=== PATIENT | male | born 1935 | race African-American/Black ===

== ENCOUNTER 2019-02-11 17:30 | Inpatient (IN) ==
[2019-02-11] MEDS ORDERED: ASPIRIN PO ONE (17:49)
--- NOTE | 2019-02-11 17:53 | PROVIDER DOCUMENTATION ---
HPI-Chest Pain - General Stated Complaint: CHEST PAIN Time Seen by Provider: 02/11/19 17:44 Source: patient Allergies/Adverse Reactions: Patient Allergies Allergy/AdvReac Type Severity Reaction Status Date / Time No Known Allergies Allergy Verified 10/01/17 11:31 Home Medications: Home Medication List Medication Instructions Recorded Confirmed Last Taken Type Warfarin Sodium [Coumadin] 5 mg PO QHS 10/22/13 02/11/19 09/30/17 History Metoprolol Tartrate 25 mg PO BID 12/30/16 02/11/19 09/30/17 History Furosemide [Lasix] 20 mg PO DAILY 10/01/17 02/11/19 09/30/17 History Isosorbide Mononitrate [Isosorbide 30 mg PO DAILY 10/01/17 02/11/19 09/30/17 History Mononitrate ER] Enoxaparin [Lovenox] 60 mg SUBQ Q12H #14 syringe 02/13/19 Unknown Rx - History of Present Illness-CP Nature of Presenting Problem: 83 YO M pmh for HTN and artificial heart valve on coumadin presents with episode of chest pain, substernal, non radiating that is pressure like and causing him to be short of breath. He denies n/v/diaphoresis or prior CO. Location: reports: substernal Quality of Pain: reports: pressure Onset/Duration: 1-3 hours ago Timing: still present, improving Nitro Today/Relief: no nitro taken today Aspirin Treatment Today: no aspirin today Similar Symptoms Previously?: No Recently Seen Here or By Another Healthcare Provider: No Review of Systems - Adult - REVIEW OF SYSTEMS - ADULT Constitutional: denies: chills, fever Eyes: reports: no symptoms reported. denies: blurred vision, double vision Ears, Nose, Mouth & Throat: reports: no symptoms reported Cardiovascular: reports: see HPI, chest pain. denies: palpitations, syncope Respiratory: reports: see HPI, shortness of breath Gastrointestinal: reports: no symptoms reported. denies: nausea, vomiting Genitourinary: reports: no symptoms reported Musculoskeletal: reports: no symptoms reported Integumentary: reports: no symptoms reported Neurological: reports: no symptoms reported Psychiatric: reports: no symptoms reported Endocrine: reports: no symptoms reported Hematologic/Lymphatic: reports: no symptoms reported Past History - Adult - PAST MEDICAL HISTORY-ADULT Review of Records: reports: Social history reviewed & non-contributory. 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 ) Other Conditions: reports: denies history - PRIOR SURGERIES/PROCEDURES Surgical/Procedure History: reports: reviewed, not pertinent, other (MVR) - PRIOR HOSPITALIZATIONS Prior Hospitalizations: reports: none - IMMUNIZATION STATUS Childhood Immunizations: See Nurse Assessment Flu Vaccine: See Nurse Assessment - FAMILY HISTORY Family History: diabetes, reviewed, not pertinent - SOCIAL HISTORY Smoking: denies Substance Use: denies Living Situation: family Physical Exam-General - PHYSICAL EXAM-ADULT Initial Vital Signs Reviewed: Yes - CONSTITUTIONAL General Appearance: appears well, alert, no apparent distress, thin - EYES Eyes: PERRL/EOMI, pink conjunctivae - HEAD, EARS, NOSE, MOUTH & THROAT HENMT: normocephalic/atraumatic, moist mucous membranes - NECK Neck: full range of motion, supple - RESPIRATORY Respiratory: lungs clear, normal breath sounds, no pleuratic chest pain, no respiratory distress, no accessory muscle use - CARDIOVASCULAR Cardiovascular: normal peripheral pulses, regular rate, rhythm - GASTROINTESTINAL (ABDOMEN) Abdominal Exam: non tender, soft - MUSCULOSKELETAL Back Exam: no CVA tenderness Extremity: non-tender, normal gait, normal inspection, no pedal edema - SKIN Integumentary: normal color, normal turgor, warm/dry - NEUROLOGIC Neurologic: grossly normal, no motor/sensory deficits - PSYCHIATRIC Psych/Mental Status: normal mood/affect, oriented x 3 - HEART Score HEART Score: History: Slightly Suspicious HEART Score: ECG: Non-Specific Repolarization Disturbance/LBBB/PM HEART Score: Age: > or = 65 Years HEART Score: Risk Factors for Atherosclerotic Disease: No Risk Factors Known HEART Score: Troponin: < or = Normal Limit Total HEART Score:: 3 Progress - PLAN OF CARE/RESULTS Progress/Plan/Lab Results: Orders Category Date Time Status Admit - [facility] Routine AdmDCTranf 02/11/19 21:39 Active Activity - Bed Rest with BRP ORDERED Care 02/11/19 21:41 Active Cardiac Monitoring DIRECTED Care 02/11/19 17:49 Completed Daily Weights 0500 Care 02/11/19 22:40 Active I&O [Intake and Output-Strict] ORDERED Care 02/11/19 22:40 Active Nursing- MD Consult Request ROUTINE Care 02/11/19 22:45 Active Vital Signs Order Q 4-HR ASSESS Care 02/11/19 21:41 Active Physician/Provider Consults Routine Cons 02/11/19 22:44 Ordered Heart Healthy Diet Diet 02/11/19 19:40 Completed CHEST-2 VIEWS [RAD] Stat Exams 02/11/19 17:49 Completed CBC WITH DIFF [HEME] Routine Lab 02/12/19 07:00 Completed CBC WITH ELECTRONIC DIFF [HEME] Stat Lab 02/11/19 18:08 Completed CK PROFILE [SP CHEM] Q8H Lab 02/12/19 00:48 Completed CK PROFILE [SP CHEM] Q8H Lab 02/12/19 08:46 Completed CK PROFILE [SP CHEM] Q8H Lab 02/12/19 16:30 Completed CK PROFILE [SP CHEM] Stat Lab 02/11/19 18:08 Completed COMPREHENSIVE METABOLIC PANEL [CHEM] Stat Lab 02/11/19 18:08 Completed DIGOXIN [TDM] Routine Lab 02/12/19 07:00 Completed LIPID PROFILE W/CALC LDL [LIPIDS] Routine Lab 02/12/19 07:00 Completed PRO B-NATRIURETIC PEPTIDE Stat Lab 02/11/19 18:08 Completed TROPONIN T Q8H Lab 02/12/19 00:48 Completed TROPONIN T Q8H Lab 02/12/19 08:46 Completed TROPONIN T Q8H Lab 02/12/19 16:30 Completed TROPONIN T Stat Lab 02/11/19 18:08 Completed TROPONIN T Stat Lab 02/11/19 20:24 Completed TSH Stat Lab 02/11/19 18:08 Completed URINALYSIS W/POSS RFLX CULT [URINALYSIS] Stat Lab 02/11/19 18:35 Completed URINE MANUAL MICROSCOPIC [URINALYSIS] Stat Lab 02/11/19 18:35 Completed 0.9% Sodium Chloride Inj [Ns] 1,000 ml Med 02/12/19 00:28 Discontinued IV 75 mls/hr Aspirin Med 02/11/19 17:49 Discontinued 324 mg PO NOW ONE Enoxaparin [Lovenox] Med 02/12/19 09:00 Discontinued 40 mg SUBQ Q24H Furosemide [Lasix] Med 02/12/19 09:00 Discontinued 20 mg PO DAILY Isosorbide Mononitrate E.r. [Imdur] Med 02/12/19 09:00 Discontinued 30 mg PO DAILY Metoprolol [Lopressor] Med 02/12/19 09:00 Discontinued 25 mg PO BID Metoprolol [Lopressor] Med 02/12/19 09:00 Discontinued 25 mg PO BID Morphine Med 02/11/19 20:06 Discontinued 4 mg IV NOW ONE Nitroglycerin Med 02/12/19 00:28 Discontinued 1 inch TOP Q6H Warfarin [Coumadin] Med 02/12/19 21:00 Discontinued 5 mg PO QHS EKG [EKG] Stat Ther 02/11/19 17:48 Completed EKG [EKG] Stat Ther 02/11/19 17:48 Draft Transfer/Admit Order [TRANSFER] Routine Transfer 02/11/19 21:40 Completed Result Diagrams: 02/12/19 07:00 02/11/19 18:08 - REASSESSMENT Reassessment #1 Time Reassessed: 19:21 Status: other (pain currently controlled. pt states it was more like a pressure .) - EKG 1 Time of EKG reading by physician:: 18:30 EKG Read and Signed by:: Antonieta Grace EKG Interpretation (*Must complete 3 of following elements*): Abnormal Rate: 75 Rhythm: NSR QRS: poor R wave progression, LVH DC Interval: normal ST Wave: depressed (v4,v5,v6) Prior EKG Comparison: changes noted (from 10/01/17) 2 Time of EKG reading by physician:: 20:06 EKG Read and Signed by:: Antonieta Grace EKG Interpretation (*Must complete 3 of following elements*): Abnormal Rate: 70 Rhythm: NSR QRS: normal DC Interval: normal ST Wave: depressed Prior EKG Comparison: changes noted (improving depressions in lateral leads than before) - CONSULTS/PCP/HOSPITALIST Notification #1 *Consult/PCP/Hospitalist*: Dr. Escamilla Time Discussed: 19:20 Consult Disposition: Will see in ED, Admit Departure - Departure Date of Disposition Decision: 02/11/19 Time of Disposition Decision: 19:21 DIAGNOSIS: Chest pain Disposition: ADMITTED INPATIENT 09 Certified Medical Emergency: Emergent Condition: Stable - Critical Care Note This patient required my direct & personal management of CC.: No Attestation - Physician/ TRES Attestation The physician spent face to face time with patient:: Yes Advanced Practice Provider documentation review:: Supervising physician onsite and consulted in the evaluation and care of this patient. The physician did have a face to face encounter with the patient.
[2019-02-11 18:25] LABS: BASO# 0.02 X1000 (0.0-0.2); BASO% 0.2 % (0.0-0.8); EOS# 0.02 X1000 (0.0-0.7); EOS% 0.2 % (0.0-10.0); HEMATOCRIT 35.6 % (42.0-52.0); HEMOGLOBIN 11.6 g/dL (14.0-18.0); IMM GRAN# 0.02 X1000 (0.0-0.04); IMM GRAN% 0.2 % (0.0-0.5); LYMPH# 0.52 X1000 (1.2-3.4); LYMPH% 5.1 % (20.5-51.1); MCH 28.4 PG (27-31); MCHC 32.6 g/dL (33-37); MONO# 0.73 X1000 (0.11-0.59); MONO% 7.1 % (1.7-9.3); MPV 10.8 FL (7.4-10.4); NEUT# 8.98 X1000 (1.4-6.5); NEUT% 87.2 % (42.2-75.2); PLT 136 X1000 (130-400); RBC 4.09 XMIL (4.7-6.1); RDW 15.4 % (11.5-14.5); WBC 10.29 X1000 (4.8-10.8)
--- NOTE | 2019-02-11 18:27 | Diag Imaging Result Doc PS360 ---
EXAM: CHEST-2 VIEWS - 02/11/2019 HISTORY: CP TECHNIQUE: Chest two views COMPARISON: 10/01/2017 FINDINGS: There is cardiomegaly similar to prior. There is prosthetic mitral valve again seen. There are apparent COPD changes similar to prior. There is prominence of central markings similar to prior. There is no acute consolidation, pleural effusion, or pneumothorax identified. IMPRESSION: Cardiomegaly, COPD changes, and prominence of central markings similar to prior. Compared to prior, no acute changes. Electronically signed by Pablo Cunningham 02/11/2019 6:25 PM
[2019-02-11 18:45] LABS: URINE SOURCE CLEAN CATCH
[2019-02-11 18:48] LABS: BILIRUBIN URINE NEGATIVE (NEGATIVE); BLOOD URINE SMALL (NEGATIVE); COLOR YELLOW; GLUCOSE URINE NEGATIVE (NEGATIVE); KETONE URINE NEGATIVE (NEGATIVE); LEUKOCYTES URINE NEGATIVE (NEGATIVE); NITRITE URINE NEGATIVE (NEGATIVE); PH URINE 6.5; PROTEIN URINE 30 mg/dL (NEGATIVE); TURBIDITY URINE CLEAR (CLEAR); UROBILINOGEN URINE 6 mg/dL (NORMAL)
[2019-02-11 18:58] LABS: UR EPITHELIAL CELLS <10 /HPF (<10); URINE BACTERIA NEGATIVE /HPF; URINE RBC <10 /HPF (<10); URINE WBC <10 /HPF (<10)
[2019-02-11 19:00] LABS: AGAP 17; ALBUMIN 4.1 g/dL (3.5-5.0); ALKALINE PHOSPHATASE 82 U/L (32-122); BUN 13 mg/dL (8-22); CALCIUM 9.2 mg/dL (8.8-10.2); CHLORIDE 95 mmol/L (98-107); CK PROFILE 92 U/L (24-204); COSMO 272; ESTIMATED GFR > 60; GLUCOSE 98 mg/dL (70-104); GOT 31 U/L (10-34); GPT 9 U/L (10-44); POTASSIUM 4.9 mmol/L (3.5-5.1); SODIUM 136 mmol/L (136-145); TCO2 24 mmol/L (25-35); TOTAL BILIRUBIN 0.55 mg/dL (0.20-1.00); TOTAL PROTEIN 8.4 g/dL (6.3-8.3)
[2019-02-11 19:04] LABS: URINE CRYSTALS NONE SEEN
[2019-02-11] MEDS ORDERED: MORPHINE IV ONE (20:06)
--- NOTE | 2019-02-11 21:48 | EKG Report ---
Test Performed on : 02/11/2019 6:27:48 PM Test Reason : CP Blood Pressure : / mmHG Vent. Rate : 075 BPM Atrial Rate : 075 BPM P-R Int : 142 ms QRS Dur : 090 ms QT Int : 442 ms P-R-T Axes : 076 -56 104 degrees QTc Int : 493 ms Normal sinus rhythm. Left anterior fascicular block Left ventricular hypertrophy with repolarization abnormality Cannot rule out Septal infarct , age undetermined Abnormal ECG When compared with ECG of 01-OCT-2017 14:25, Minimal criteria for Septal infarct are now present ST no longer elevated in Lateral leads T wave inversion now evident in Anterolateral leads Unconfirmed Result
--- NOTE | 2019-02-11 21:48 | EKG Report ---
Test Performed on : 02/11/2019 8:04:34 PM Test Reason : CP Blood Pressure : / mmHG Vent. Rate : 070 BPM Atrial Rate : 070 BPM P-R Int : 150 ms QRS Dur : 088 ms QT Int : 440 ms P-R-T Axes : 071 -41 082 degrees QTc Int : 475 ms Sinus rhythm. with premature supraventricular complexes. Left axis deviation Left ventricular hypertrophy with repolarization abnormality Cannot rule out Septal infarct (cited on or before 11-FEB-2019) Abnormal ECG When compared with ECG of 11-FEB-2019 18:27, (Unconfirmed) premature supraventricular complexes. are now present Confirmed by Angus LUZ, Ghulam ([id number]) on 02/12/2019 8:37:50 AM
[2019-02-12] MEDS: NITROGLYCERIN TOP SCH ×4 (02:32→21:53)
[2019-02-12] MEDS: NS 1,000 ML IV SCH ×2 (02:33→12:51)
--- NOTE | 2019-02-12 06:47 | HISTORY AND PHYSICAL ---
CHIEF COMPLAINT: Chest tightness for less than 1 day. HISTORY OF PRESENT ILLNESS: Mr. Jeovany Veliz is an 83-year-old male who has history of coronary artery disease, history of mitral valve replacement, previous cerebrovascular accident, and hypertension. The patient stated that he developed chest tightness at about 2:30 pm today. Apparently, he was attending a when the chest tightness started . On a scale of 0 to 10, he describes it as 9 to 10 over 10. It is alleviated with analgesic, with no known aggravating factor. He has associated palpitations. No diaphoresis. The patient was seen, and evaluated in the ER. His initial cardiac enzymes have been negative. EKG does not show any evidence of acute coronary syndrome. The patient will now be admitted to the floor for further management. PAST MEDICAL HISTORY: 1. History of mitral valve disease. 2. History of previous cerebrovascular accident. 3. History of hypertension. PAST SURGICAL HISTORY: He has had mechanical valve replacement as well as brain aneurysm clipping. ALLERGIES: No known drug allergies. SOCIAL HISTORY: No history of cigarette smoking. No alcohol or drug use. FAMILY HISTORY: Positive for coronary artery disease. DISCHARGE MEDICATIONS: 1. Warfarin 5 mg p.o. at bedtime. 2. Metoprolol 25 mg p.o. twice a day. 3. Lasix 20 mg p.o. daily. 4. Isosorbide dinitrate 30 mg p.o. daily. REVIEW OF SYSTEMS: Constitutional: No fever. LEPIDOPTERIST: No headaches. Eyes: No blurred vision. ENT: No sinus problems. No hearing loss. Cardiovascular: See history of present illness. Respiratory: No cough. GI: No nausea, vomiting, or diarrhea. : No dysuria. Hematology: No skin lesions. Hematology: Patient is on chronic anticoagulation. Musculoskeletal: No joint pains. Endocrine: No thyroid disease or diabetes. Psychiatric: No anxiety or depression. PHYSICAL EXAMINATION: VITAL SIGNS: Temperature 99 degrees, pulse 75, respiratory rate is 18, blood pressure 137/70, and oxygen saturation 100%. HEENT: Atraumatic and normocephalic. CARDIOVASCULAR: S1, S2. RESPIRATORY: There is evidence of good air entry bilaterally. ABDOMEN: Soft, nontender. No masses felt. EXTREMITIES: No evidence of edema. CENTRAL NERVOUS SYSTEM: No obvious focal deficit noted. LABORATORY DATA: WBC 10.29, hematocrit 35.6 with a platelet count of 136,000. Sodium 136, potassium 4.9, chloride 5, bicarb 24, BUN 13, and creatinine is 1.0. ProBNP is 21. Chest x-ray shows evidence of cardiomegaly with COPD changes and prominence of central markings. EKG no acute changes to suggest acute coronary syndrome. ASSESSMENT AND PLAN: 1. Atypical chest pain. Place patient on telemetry. Follow up on serial cardiac enzymes. Maintain patient on aspirin , beta mee and nitroglycerin. Check lipid panel. Consult with Cardiology. 2. Mechanical heart valve. Continue warfarin. Monitor PT/INR. 3. Congestive heart failure. Monitor intakes and outputs as well as daily weights. Diuretics as needed. 4. Hypertension. Optimize blood pressure control. 5. Deep vein thrombosis prophylaxis. The patient is on warfarin. 6. Gastrointestinal prophylaxis. PPI. cc: John Escamilla MD MTDD
[2019-02-12 07:28] LABS: BASO# 0.02 X1000 (0.0-0.2); BASO% 0.3 % (0.0-0.8); EOS# 0.09 X1000 (0.0-0.7); EOS% 1.5 % (0.0-10.0); HEMATOCRIT 31.6 % (42.0-52.0); HEMOGLOBIN 10.3 g/dL (14.0-18.0); IMM GRAN# 0.02 X1000 (0.0-0.04); IMM GRAN% 0.3 % (0.0-0.5); LYMPH# 1.01 X1000 (1.2-3.4); MCH 28.5 PG (27-31); MCHC 32.6 g/dL (33-37); MCV 87.3 FL (81-99); MONO# 0.57 X1000 (0.11-0.59); MONO% 9.6 % (1.7-9.3); MPV 10.6 FL (7.4-10.4); NEUT# 4.22 X1000 (1.4-6.5); NEUT% 71.3 % (42.2-75.2); PLT 132 X1000 (130-400); RBC 3.62 XMIL (4.7-6.1); RDW 15.4 % (11.5-14.5); WBC 5.93 X1000 (4.8-10.8)
[2019-02-12 07:33] LABS: INR 1.77
[2019-02-12 07:58] LABS: CHOLESTEROL 154 mg/dL (0-200); HDL 76 mg/dL (35-55); LDL 69 mg/dL; TRIGLYCERIDES 46 mg/dL (39-160); VLDL 9 mg/dL
[2019-02-12] MEDS ORDERED: LOPRESSOR PO SCH (09:00)
[2019-02-12] MEDS ORDERED: LOVENOX SUBQ SCH (09:00)
[2019-02-12] MEDS: LOPRESSOR PO SCH (09:29)
[2019-02-12] MEDS: IMDUR PO SCH (09:29)
[2019-02-12] MEDS: LASIX PO SCH (09:29)
[2019-02-12] MEDS ORDERED: LOVENOX 1 MG/KG SUBQ ONE (11:21)
[2019-02-12] MEDS ORDERED: LOVENOX SUBQ ONE (11:30)
--- NOTE | 2019-02-12 11:38 | EKG Report ---
Test Performed on : 02/12/2019 11:26:53 AM Test Reason : chest pain Blood Pressure : / mmHG Vent. Rate : 058 BPM Atrial Rate : 058 BPM P-R Int : 174 ms QRS Dur : 096 ms QT Int : 492 ms P-R-T Axes : 080 -38 099 degrees QTc Int : 482 ms Sinus bradycardia. with marked sinus arrhythmia. Left axis deviation Voltage criteria for left ventricular hypertrophy Anteroseptal infarct (cited on or before 11-FEB-2019) Abnormal ECG When compared with ECG of 11-FEB-2019 20:04, premature supraventricular complexes. are no longer present T wave amplitude has decreased in Anterior leads Confirmed by Angus LUZ, Ghulam ([id number]) on 02/12/2019 5:39:34 PM
--- NOTE | 2019-02-12 16:48 | PROGRESS NOTE ---
DATE: 02/12/2019 SUBJECTIVE: The patient came in with shortness of breath and chest pain. He has a mechanical heart valve. He is on Coumadin, but he is somewhat therapeutic. No clear evidence the type of valve he has, buy in any case, he came in for chest pain. He has ruled out. He is currently getting cardiac workup per Cardiology Service, echocardiogram and a stress test tomorrow. He is on anticoagulation. We are going to keep him on anticoagulation. He is on Lasix, Imdur, Lopressor. OBJECTIVE: Vital Signs: On exam, his blood pressure is 122/81, heart rate 85, respiratory 16, temperature 97.9 degrees. Cardiovascular: Regular rate and rhythm. Pulmonary: Bilateral breath sounds. Clear to auscultation. Gastrointestinal: Abdomen was soft, nontender, nondistended. Bowel sounds are positive. LABORATORY DATA: Hemoglobin and hematocrit of 10 and 31. INR is 1.7. PROBLEM LIST: 1. Chest pain. Again, he is getting a full cardiac workup, Lexiscan and stress. Cardiology is following. 2. Mechanical heart valve. We will continue to keep his Coumadin levels between 2.5 and 3.5. 3. Congestive heart failure. He appears to be compensated. DISPOSITION: Pending his clinical status. cc: Sandor Salvador MD
--- NOTE | 2019-02-12 20:43 | CARDIOLOGY CONSULTATION ---
DATE: 02/12/2019 CHIEF COMPLAINT ON PRESENTATION: Chest pain. HISTORY OF PRESENT ILLNESS: Mr. Veliz is an 83-year-old black male with a history of mechanical mitral valve. Yesterday he was at a when he had some nonexertional chest pain that lasted for around 15 minutes. It was described as tightness. He had no other associated symptoms. No exertional component to it. He reports compliance with his medications. PAST MEDICAL HISTORY: Significant for: 1. Mitral valve disease with mitral valve replacement. 2. Previous CVA. 3. History of nonobstructive coronary disease. 4. Hypertension. SOCIAL HISTORY: No tobacco use. He is . FAMILY HISTORY: Significant for coronary disease. REVIEW OF SYSTEMS: A 10 system review of systems is negative except for those things mentioned in HPI. PHYSICAL EXAMINATION: Vital Signs: He is afebrile. His heart rate is 66. Blood pressure 132/72. General: He is in no acute distress. Cardiovascular: He sounds to be in a regular rate and rhythm. He has no obvious murmurs. He has a crisp mechanical S1 heard. He has no S3. He has no lower extremity edema. Chest: Exam sounds relatively clear. He has no increased work of breathing. Abdomen: Soft, nontender, nondistended. He has no obvious organomegaly. Skin: Warm and dry throughout without any rashes. Neurological: He is moving all extremities well. He has no lateralizing deficits. PERTINENT DATA: His EKG on 02/11/2019 at 20:04 shows sinus rhythm. Evidence for LVH is identified. His subsequent EKG on 02/12/2019 at 11:26 demonstrates sinus rhythm. Again, evidence for LVH is identified. His EKG on 02/11/2019 at 20:04 shows sinus rhythm, evidence for LVH. Pac was identified. He had a chest x-ray performed that demonstrated cardiomegaly with changes consistent with COPD, some mild prominence of interstitial markings. White count 5.9, hematocrit 31, and his platelet count is 132,000. His INR is 1.7. His troponin was normal. His albumin is 4. His HDL is 76, LDL 69. ASSESSMENT: Mr. Veliz is an 83-year-old gentleman who presented with chest pain. PLAN: We will proceed with rest perfusion imaging today and stress in the morning. His echocardiogram is currently pending. If this is unremarkable, then he can likely be discharged home. We gave him one dose of Lovenox. At this point, management of his INR will be deferred to the primary team. cc: Wade Sosa MD
[2019-02-12] MEDS ORDERED: COUMADIN PO SCH ×2 (21:00)
[2019-02-13] MEDS: LOPRESSOR PO SCH ×2 (01:12→11:30)
[2019-02-13] MEDS: NITROGLYCERIN TOP SCH ×3 (03:48→15:35)
--- NOTE | 2019-02-13 07:15 | EKG Report ---
Test Performed on : 02/13/2019 06:57:00 AM Test Reason : chest pain Blood Pressure : / mmHG Vent. Rate : 067 BPM Atrial Rate : 067 BPM P-R Int : 168 ms QRS Dur : 096 ms QT Int : 482 ms P-R-T Axes : 073 -54 088 degrees QTc Int : 509 ms Normal sinus rhythm. Left anterior fascicular block Minimal voltage criteria for LVH, may be normal variant Nonspecific T wave abnormality Prolonged QT Abnormal ECG When compared with ECG of 12-FEB-2019 11:26, Criteria for Anteroseptal infarct are no longer present Confirmed by Angus LUZ, Ghulam ([id number]) on 02/13/2019 8:21:02 AM
[2019-02-13 07:55] LABS: INR 1.55; PROTIME 18.9 Seconds (11.0-16.0)
[2019-02-13] MEDS ORDERED: LEXISCAN ONE (08:31)
[2019-02-13] MEDS ORDERED: LOVENOX SUBQ SCH (09:15)
--- NOTE | 2019-02-13 09:47 | ECHO REPORT ---
ORDER DATE: 02/12/2019 MEASUREMENTS: Aortic root 3.2, left atrium 3.6, right atrium 6.1. SUMMARY: 1. Technically difficult study due to limited acoustic window quality. Intravenous echo contrast agent Optison was utilized to enhance endocardial definition. 2. Aortic valve is trileaflet and demonstrates mild sclerotic change, but adequate opening on 2- dimensional images. The peak gradient across the aortic valve is approximately 10 mmHg. There is [id number] aortic regurgitation. Mitral valve has been replaced with mechanical prosthesis, which appears to be well seated, but is not well imaged due to significant acoustic shadowing. The mean gradient across the mitral valve prosthesis is 3.1 mmHg, with a peak gradient of 9.7 mmHg. Mitral valve area by pressure halftime method is 3.4 cm2. Adequate prosthetic valve function is demonstrated. There is no appreciable mitral regurgitation. Tricuspid valve is without evidence of structural abnormality, while pulmonic valve is not well demonstrated. There is mild tricuspid regurgitation. The estimated systolic PA pressure by Doppler is 65 to 70 mmHg, suggesting [id number] pulmonary hypertension. The aortic root is normal in size. 3. Normal left ventricular chamber size with mild concentric left ventricular hypertrophy demonstrated. Estimated left ventricular ejection fraction is approximately 45%. No obvious focal wall motion abnormality can be appreciated. Severe biatrial enlargement is demonstrated. The right ventricle is grossly normal in size with grossly preserved right ventricular systolic function. 4. No pericardial effusion. 5. Appearance of inferior vena cava suggests normal central venous pressure. cc: MD Dayan Lyle PA
[2019-02-13] MEDS: LASIX PO SCH (11:30)
[2019-02-13] MEDS: IMDUR PO SCH (11:30)
[2019-02-13] MEDS: NS 1,000 ML IV SCH ×2 (11:31→15:35)
--- NOTE | 2019-02-13 14:36 | Diag Imaging Result Document ---
PROCEDURE NAME: MYOCARDIAL PERF SCAN, STR/REST - 02/12/2019 STUDY PERFORMED: Lexiscan Cardiolite stress test. DESCRIPTION OF PROCEDURE: Lexiscan was infused per standard protocol. There was no chest pain. Stress electrocardiogram was negative for ischemia. Baseline electrocardiogram revealed normal sinus rhythm, left ventricular hypertrophy with nonspecific ST-T changes. Cardiolite was injected. A 2 day protocol, and 26 millicuries of Cardiolite was injected for the rest phase and 26.6 mCi of Cardiolite was injected for the stress phase. Images revealed significant chest wall and diaphragmatic attenuation. There is GI interference as well. There is no evidence of ischemia. There is low-grade fixed defect in the left ventricular apex. There is better tracer uptake on the stress compared to rest. Left ventricular ejection fraction by gated SPECT was 71%. CONCLUSIONS: 1. No chest pain. 2. Negative Lexiscan stress electrocardiogram. 3. Myocardial perfusion images revealed significant chest wall attenuation. There is low-grade fixed defect in the left ventricular apex. There is no definite evidence of ischemia. Left ventricular ejection fraction by gated SPECT was 71%. cc: MD Dayan Tobar PA
[2019-02-13 15:47] VITALS: BP 135/67
--- NOTE | 2019-02-13 17:23 | CARDIOLOGY PROGRESS NOTE ---
DATE: 02/13/2019 SUBJECTIVE: Mr. Veliz has no problems today. He has not had any interim chest pain. He denies any orthopnea. PHYSICAL EXAMINATION: Vital Signs: He is afebrile, heart rate is 62, blood pressure 135/67. General: He is in no acute distress. Cardiovascular: He sounds to be in a regular rate and rhythm. He has a crisp mechanical S1. He has no lower extremity edema. Chest: Exam is clear bilaterally. No increased work of breathing. PERTINENT DATA: His INR is 1.5. His nuclear scan demonstrated no clear evidence of ischemic changes. Normal ejection fraction. Fixed defect in the apex. His echocardiogram demonstrated a mean gradient across the valve of 3.1. This would suggest normal function. His nuclear scan demonstrated a normal ejection fraction. ASSESSMENT: Mr. Veliz is an 83-year-old gentleman with a mechanical mitral valve who presented with chest pain. PLAN: Nuclear scanning was unremarkable. Echocardiogram shows normally functioning mitral valve prosthetic. He could be discharged from our standpoint. His INR is subtherapeutic so I would recommend a Lovenox bridge. Please contact us if we can be of further assistance with this patient. cc: Wade Sosa MD
--- NOTE | 2019-02-14 20:41 | DISCHARGE SUMMARY ---
ADMISSION DATE: 02/11/2019 DISCHARGE DATE: 02/13/2019 DIAGNOSES: 1. Chest pain, resolved. 2. Mechanical heart valve, on chronic anticoagulation. 3. Congestive heart failure, with an ejection fraction of 45%. 4. Hypertension. CONSULTANTS: Dr. Wade Sosa, Cardiology. DIAGNOSTIC DATA: 1. Chest x-ray revealed cardiomegaly, COPD changes, prominence of central marking similar to prior of 10/01/2017. 2. Myocardial perfusion scan revealed no chest pain, negative Lexiscan stress electrocardiogram. Myocardial perfusion images revealed significant chest wall attenuation. There is a low-grade fixed defect in the left ventricular apex. No definite evidence of ischemia. Left ventricular ejection fraction by gated SPECT was 71%. 3. Echocardiogram revealed an ejection fraction of 45%. No obvious focal wall motion abnormality. The aortic valve is trileaflet and demonstrates mild sclerotic changes. 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 4. EKG on 02/11/2019 shows sinus rhythm. Evidence for LVH is identified. 5. EKG 02/12/2019 at 11:26 demonstrates sinus rhythm with evidence for LVH identified. HOSPITAL COURSE: Mr. Veliz presented to the emergency room complaining of chest pain. It was nonexertional, while he was at a . He said it lasted about 15 minutes. He described it as a tightness with no associated symptoms. No exertional component. EKGs as stated above. He underwent a Lexiscan, which was negative for ischemia. Echocardiogram as stated above. He has remained pain-free throughout the hospitalization. His INR was subtherapeutic. Lovenox was instituted, he will be discharged on this. His target INR is 2.5 to 3.5. DISCHARGE PHYSICAL EXAMINATION: Vital signs: Blood pressure is 135/67, heart rate of 62, respirations 19, temperature 97.8 degrees with room air saturations 98% to 100%. Cardiovascular: Regular rate and rhythm. S1 and S2 are appreciated. Click for mechanical valve is appreciated. He has no lower extremity edema. Calves are nontender, with peripheral pulses palpable x4 extremities. Pulmonary: Breath sounds are clear. No increased work of breathing noted. Chest rises and falls symmetric with respiration. Gastrointestinal: Abdomen is soft, nontender, nondistended. Bowel sounds in all 4 quadrants. DISCHARGE MEDICATIONS: 1. Coumadin 5 mg p.o. at bedtime. 2. Isosorbide mononitrate 30 mg p.o. daily. 3. Lasix 20 mg p.o. daily. 4. Metoprolol tartrate 25 mg p.o. b.i.d. 5. Lovenox 60 mg subcutaneous every 12 hours x7 days FOLLOWUP: 1. Dr. Rita Avelar. He is to call to be seen as needed. 2. Dr. Wade Sosa. He needs to call to schedule an appointment, to be seen in the next month. 3. [facility]. He needs to call in the morning, notify them of his discharge, that he is on Lovenox, to schedule INRs and further dosing of Coumadin and Lovenox. DISCHARGE INSTRUCTIONS: He has been instructed to call to be seen sooner or return to the ER for any syncope, dizziness, chest pain, palpitations, shortness of breath, cough, temperature greater than 101 degrees, any nausea, vomiting, diarrhea, constipation, black or bloody vomitus or stools, any hematuria, dysuria, frequency or urgency, for any bruising, bleeding gums, black or bloody stools, or for any questions or concerns that he may have. DISPOSITION: He is being discharged home in stable condition with family members. Greater than 30-minute discharge. Dictated by MARIO Mehta for Speedy Patel MD Addendum: Patient seen and examined by myself. Agree with MARIO note. It reflects my assessment and plan. Patient is being discharged in stable condition to home. Follow up with PCP in a week. cc: MARIO Mehta MD [facility]
== END 2019-02-13 19:13 | disposition home health service (06) | DRG 313 ==
LOC: SUPCPDRO → ED 17:30 → SUATTDRO 23:57 → 3N 23:57
PROVIDERS: ATTEND Internal Medicine